=== PATIENT | male | born 1955 | race Caucasian/White ===

== ENCOUNTER 2019-12-25 11:40 | Inpatient (IN) ==
[2019-12-25] MEDS ORDERED: ROCEPHIN 1 GM in NS 50 ML IV ONE (12:44)
[2019-12-25] MEDS ORDERED: NS 1,000 ML IV ONE ×2 (12:44→20:41)
[2019-12-25] MEDS ORDERED: SOLU-MEDROL IV ONE (12:44)
--- NOTE | 2019-12-25 12:49 | EKG Report ---
Test Performed on : 12/25/2019 12:25:11 PM Test Reason : AMS,CP Blood Pressure : / mmHG Vent. Rate : 114 BPM Atrial Rate : 114 BPM P-R Int : 126 ms QRS Dur : 086 ms QT Int : 310 ms P-R-T Axes : 048 056 058 degrees QTc Int : 427 ms Sinus tachycardia. Otherwise normal ECG No previous ECGs available Unconfirmed Result
--- NOTE | 2019-12-25 13:05 | Diag Imaging Result Doc PS360 ---
CHEST-PORTABLE - 12/25/2019 INDICATION: CP COMPARISON: None FINDINGS: There is a focal, mixed infiltrate in the right lung base. Lung volumes are moderately low. Heart size is normal. No pneumothorax or pleural effusion. IMPRESSION: Indeterminate infiltrate in the right lung base. Electronically signed by Simeon Guevara 12/25/2019 1:02 PM
--- NOTE | 2019-12-25 13:22 | Diag Imaging Result Doc PS360 ---
EXAM: CT HEAD W/O CONTRAST HISTORY: AMS,CONFUSION TECHNIQUE: CT head without contrast COMPARISON: None. FINDINGS: No parenchymal hemorrhage. No epidural or subdural hematoma. No subarachnoid hemorrhage. No mass identified on this noncontrasted exam. No hydrocephalus. No sinus opacification. IMPRESSION: No hemorrhage. Negative brain CT without contrast. This exam was performed using automated exposure control, adjustment of mA or kV according to patient size, and/or use of iterative reconstruction technique. Electronically signed by Norman Jc 12/25/2019 1:19 PM
[2019-12-25 13:39] LABS: INR 1.15; PROTIME 14.9 Seconds (11.0-16.0); PTT 33.5 Seconds (22.3-41.8)
[2019-12-25 13:46] LABS: ALLEN TEST YES; BLOOD TYPE ARTERIAL; HCO3-(ACT) 23.1 mmoll (20.0-26.0); METHB 0.8 % (0.0-1.5); O2(CT) 17.9 mL/dL (15.0-23.0); PCO2(98.6) 30 mmHg (35-45); PO2(98.6) 50 mmHg (60-100); SAMPLE BLOOD; SAO2 90.4 % (95.0-100.0); THB 14.6 g/dL (11.5-17.4); pH(98.6) 7.45 (7.35-7.45)
[2019-12-25 13:51] LABS: MODALITY CANNULA
[2019-12-25 13:52] LABS: O2HB 87.5 % (95.0-99.0)
[2019-12-25 13:56] LABS: BASO# 0.02 X1000 (0.0-0.2); BASO% 0.1 % (0.0-0.8); EOS# 0.01 X1000 (0.0-0.7); EOS% 0.1 % (0.0-10.0); HEMATOCRIT 41.9 % (42.0-52.0); HEMOGLOBIN 14.2 g/dL (14.0-18.0); IMM GRAN# 0.28 X1000 (0.0-0.04); IMM GRAN% 1.5 % (0.0-0.5); LYMPH# 1.08 X1000 (1.2-3.4); LYMPH% 5.7 % (20.5-51.1); MCH 28.9 PG (27-31); MCHC 33.9 g/dL (33-37); MCV 85.2 FL (81-99); MONO# 1.17 X1000 (0.11-0.59); MONO% 6.1 % (1.7-9.3); MPV 10.6 FL (7.4-10.4); NEUT# 16.49 X1000 (1.4-6.5); NEUT% 86.5 % (42.2-75.2); PLT 218 X1000 (130-400); RBC 4.92 XMIL (4.7-6.1); RDW 14.3 % (11.5-14.5); WBC 19.05 X1000 (4.8-10.8)
[2019-12-25 14:16] LABS: AGAP 16; BUN 12 mg/dL (8-22); CHLORIDE 93 mmol/L (98-107); COSMO 258; GLUCOSE 111 mg/dL (70-104); POTASSIUM 5.1 mmol/L (3.5-5.1); SODIUM 128 mmol/L (136-145); TCO2 19 mmol/L (25-35)
[2019-12-25 14:17] LABS: ALB/GLOB RATIO 0.6; ALBUMIN 2.8 g/dL (3.5-5.0); ALKALINE PHOSPHATASE 88 U/L (32-122); CALCIUM 8.7 mg/dL (8.8-10.2); CREATININE 0.9 mg/dL (0.7-1.2); ESTIMATED GFR > 60; GOT 36 U/L (10-34); GPT 16 U/L (10-44); MAGNESIUM 2.2 mg/dL (1.5-2.7); TOTAL BILIRUBIN 1.14 mg/dL (0.20-1.00); TOTAL PROTEIN 7.5 g/dL (6.3-8.3)
[2019-12-25] MEDS ORDERED: NICODERM PATCH TD ONE (17:35)
[2019-12-25] MEDS ORDERED: TORADOL IV ONE (17:35)
[2019-12-25] MEDS ORDERED: ZOFRAN IV ONE (17:35)
[2019-12-25 18:34] LABS: URINE SOURCE CLEAN CATCH
[2019-12-25 18:41] LABS: BILIRUBIN URINE NEGATIVE (NEGATIVE); BLOOD URINE NEGATIVE (NEGATIVE); COLOR YELLOW; GLUCOSE URINE NEGATIVE (NEGATIVE); KETONE URINE TRACE mg/dL (NEGATIVE); LEUKOCYTES URINE NEGATIVE (NEGATIVE); NITRITE URINE NEGATIVE (NEGATIVE); PROTEIN URINE 50 mg/dL (NEGATIVE); TURBIDITY URINE CLEAR (CLEAR); UROBILINOGEN URINE 8 mg/dL (NORMAL)
[2019-12-25 18:47] LABS: UR AMPHETAMINES QUAL NONE DETECTED (NONE DETECT); UR BARBITUATES QUAL NONE DETECTED (NONE DETECT); UR BENZODIAZEPIN QUAL NONE DETECTED (NONE DETECT); UR CANNABINOIDS QUAL NONE DETECTED (NONE DETECT); UR COCAINE QUAL NONE DETECTED (NONE DETECT); UR METHADONE QUAL NONE DETECTED (NONE DETECT); UR OPIATES QUAL NONE DETECTED (NONE DETECT); UR OXYCODONE QUAL NONE DETECTED (NONE DETECT); UR PCP QUAL NONE DETECTED (NONE DETECT)
[2019-12-25 18:51] LABS: UR EPITHELIAL CELLS <10 /HPF (<10); URINE BACTERIA NEGATIVE /HPF; URINE RBC <10 /HPF (<10); URINE WBC <10 /HPF (<10)
[2019-12-25 19:27] LABS: URINE CASTS NONE SEEN; URINE CRYSTALS NONE SEEN; URINE SMALL ROUND CELLS NONE SEEN; URINE YEAST NONE SEEN
[2019-12-25] MEDS ORDERED: VENTOLIN HFA INH PRN (20:01)
[2019-12-25 20:27] LABS: ALLEN TEST YES; BE -2.7 mmoll (-3.0-3.0); BLOOD TYPE ARTERIAL; HCO3-(ACT) 22.7 mmoll (20.0-26.0); O2HB 93.2 % (95.0-99.0); PCO2(98.6) 31 mmHg (35-45); PO2(98.6) 69 mmHg (60-100); SAMPLE BLOOD; SAO2 95.7 % (95.0-100.0); THB 13.7 g/dL (11.5-17.4); pH(98.6) 7.43 (7.35-7.45)
[2019-12-25 20:29] LABS: MODALITY CANNULA
[2019-12-25] MEDS: PRINIVIL PO SCH (21:41)
--- NOTE | 2019-12-25 21:49 | Diag Imaging Result Doc PS360 ---
EXAM: CT ABD/PELVIS/PULM ARTERIES INDICATION: Elevated d dimer/abd pain/AMS TECHNIQUE: This exam was performed using automated exposure control, adjustment of mA or kV according to patient size, and/or use of iterative reconstruction technique. Thin section axial images and 3-D MIPS through the chest were obtained. Standard axial images and coronal reformations through the abdomen and pelvis were obtained. COMPARISON: None. FINDINGS: CTA CHEST: There is no evidence of pulmonary embolism. There is minimal aortic atherosclerotic calcification. There is no evidence of aortic aneurysm or dissection. There is mild right hilar and mediastinal lymphadenopathy that is assumed to be reactive. There is pulmonary emphysema with an apical predominance. There is a dense right lower lobe airspace infiltrate consistent with pneumonia. The left lung is clear. There is probably trace pleural fluid on the right. There is no pneumothorax. CT ABDOMEN/PELVIS: There has been a prior cholecystectomy. There is mild compensatory biliary dilatation. The liver, spleen, pancreas, and adrenal glands are unremarkable. There is a small left renal cyst. The kidneys are essentially unremarkable, otherwise. The urinary bladder appears normal. There are bilateral small inguinal hernias containing only fat. There is mild to moderate uncomplicated diverticulosis coli. There is no evidence of appendicitis. The remainder of the GI tract is grossly unremarkable. No focal inflammatory changes, free abdominal gas, or free fluid is appreciated. There is patchy aortoiliac atherosclerotic calcification. An SMA stent is in place. There is multilevel lumbar degenerative disc disease. There is chronic spondylolysis at L5 with grade 2 anterolisthesis of L5 on S1. IMPRESSION: 1.Severe right lower lobe pneumonia. 2.No evidence of pulmonary embolism. 3.Pulmonary emphysema. 4.No evidence of acute abdominal or pelvic pathology. 5.Other incidental/nonacute findings detailed above. Electronically signed by Mikhail Wick 12/25/2019 9:47 PM
--- NOTE | 2019-12-25 22:28 | HISTORY AND PHYSICAL ---
CHIEF COMPLAINT: Altered mental status. HISTORY OF PRESENT ILLNESS: Mr. Bellamy is a 64-year-old male that I do not have really any medical history on. There is no ER provider dictation and he was not really called to our group with a report on admission. Despite this, the patient does need to be admitted. We were told from the ER provider that this patient was signed out to her, she did not have much information, it appears that he had a pneumonia and needed to be admitted. At any rate, the patient is altered. He is unsure what day he came to the emergency room. He is oriented only to person. He is unsure why he is in the emergency room. He does admit to being a four beer per day drinker, which is the large beers, I believe 16 ozs to 32 ozs, so he could be anywhere between a 6 to 12 beer a day drinker. He was noted to be hypoxic on his ABG. He arrived in the emergency room at around noon today. First set of labs showed hypoxia with an O2 of 50%. D dimer was elevated at 3.74. White count was 19.05. His alcohol and toxicology screen is negative. Flu screen is negative. CT of his head is negative. Chest x-ray showed indeterminate infiltrate in the right lung base with low lung volumes. A CT angio of the pulmonary arteries will be obtained at this time to rule out pulmonary embolus. He also appeared to have reflex from palpation of the abdomen, so a CT of the abdomen and pelvis will be obtained. At this time he will be admitted and treated for possible pneumonia. Blood cultures are pending. PAST MEDICAL HISTORY: I believe COPD. He is a one pack per day smoker. Possible cardiac stenting. Hypertension, hyperlipidemia, and GERD. PAST SURGICAL HISTORY: He has had stenting and I believe a cholecystectomy. SOCIAL HISTORY: He smokes a pack a day. He drinks between 6 and 12 beers a day (12 oz beers). No illicit drugs. FAMILY HISTORY: This was not able to be obtained related to patient's mentation. ALLERGIES: No known drug allergies. HOME MEDICATIONS: Albuterol two puffs q six hours, Symbicort 80/4.5 two puffs b.i.d., Plavix 75 p.o. daily, Lexapro 20 mg p.o. daily, Neurontin 600 mg p.o. b.i.d., lisinopril 20 mg p.o. b.i.d., lovastatin 20 mg p.o. with dinner, Protonix 40 mg p.o. daily. REVIEW OF SYSTEMS: A 14-point review of systems was attempted with the patient and had no complaint. Pertinent positives as mentioned are listed above in HPI. PHYSICAL EXAMINATION: VITAL SIGNS: Temperature 100.1, pulse 82, respirations 18, blood pressure 112/67, oxygen saturation 93% on 2 L via nasal cannula. GENERAL: A confused 64-year-old male. Oriented only to person. Lying on the ER stretcher in no acute distress. HEENT: Head is atraumatic and normocephalic. Pupils are equal, round and reactive to light. Extraocular eye movements intact. Sclerae anicteric. Conjunctivae pink. Oral mucosa is dry. NECK: Supple. No JVD. No thyromegaly. Trachea is midline. No cervical lymphadenopathy. CARDIAC: S1 and S2 appreciated. No murmurs, gallops or rubs. LUNGS: Expiratory wheezing noted. Decreased bilaterally. No rhonchi or rales. Symmetric rise and fall with respirations. ABDOMEN: Soft, nondistended. Tender diffusely with palpation. Bowel sounds present in all four quadrants and normoactive. No pulsatile mass or organomegaly. EXTREMITIES: No cyanosis, clubbing or edema. There are 2+ pedal pulses bilaterally. GENITOURINARY: No bladder distention. The patient voids, otherwise deferred. NEUROLOGICAL: Oriented only to person. Cranial nerves II-XII appear to be grossly intact. DIAGNOSTIC DATA: CT of the head - negative brain CT without contrast. Chest x-ray with indeterminate infiltrate in the right lung base. Laboratory data showed WBC of 19.05, hemoglobin 14.5, hematocrit 41.9, platelet count 218,000. D dimer is 3.74. ABG with pH of 7.45, pCO2 30, pO2 50, bicarb 23. Sodium 128, potassium 5.1, chloride 93, carbon dioxide 19, BUN 12, creatinine 0.9, glucose 111. Urine unremarkable. Alcohol and toxicology screen is negative. ASSESSMENT AND PLAN: 1. Questionable right lower lobe pneumonia. 2. Hyponatremia, likely related to beer potomania. 3. Alcohol abuse. 4. Questionable alcohol withdrawal. 5. Hypoxic respiratory failure. 6. Metabolic encephalopathy. PLAN: Admit the patient to [facility]. CT of his pulmonary arteries, abdomen, and pelvis is pending to rule out DVT. He does have an elevated D dimer. Will treat what appears to be a probable pneumonia with Rocephin and Zithromax. He received one dose of Solu-Medrol in the emergency room. He does have a history of COPD. Continue home bronchodilators. Titrate oxygen per protocol. Continue home medications for lipids and hypertension. Recheck laboratory data tomorrow morning. Further recommendations based on clinical course. Dictated by TRAMAINE Rosen for Gerald Long MD cc: TRAMAINE Rosen MD CTA ordered in light of hypoxia and d-dimer which only showed severe RLL PNA. Continue with above antibiotics. Independent exam done by me. Pt will also be on Ativan PRN. for potential ETOH withdrawal issues. Exam showed middle aged WM who is Alert but O x 2 and intermittently confused. BB creps in lungs and no tremors. MTDD
[2019-12-25] MEDS ORDERED: ZOFRAN IV PRN (23:13)
[2019-12-25] MEDS: NEURONTIN PO SCH (23:37)
[2019-12-26] LABS: BASO# 0.01 X1000 (0.0-0.2); BASO% 0.1 % (0.0-0.8); HEMATOCRIT 39.3 % (42.0-52.0); HEMOGLOBIN 13.2 g/dL (14.0-18.0); IMM GRAN# 0.17 X1000 (0.0-0.04); IMM GRAN% 1.2 % (0.0-0.5); LYMPH% 5.8 % (20.5-51.1); MCH 28.6 PG (27-31); MCHC 33.6 g/dL (33-37); MCV 85.1 FL (81-99); MONO# 0.68 X1000 (0.11-0.59); MONO% 4.9 % (1.7-9.3); MPV 10.1 FL (7.4-10.4); NEUT# 12.13 X1000 (1.4-6.5); PLT 184 X1000 (130-400); RBC 4.62 XMIL (4.7-6.1); RDW 14.3 % (11.5-14.5); WBC 13.79 X1000 (4.8-10.8)
[2019-12-26] MEDS: ZITHROMAX 500 MG/NS 500 MG/250 ML IVPB IV SCH (00:02)
[2019-12-26 00:19] LABS: AGAP 13; BUN 16 mg/dL (8-22); CALCIUM 8.4 mg/dL (8.8-10.2); CHLORIDE 97 mmol/L (98-107); COSMO 265; CREATININE 0.8 mg/dL (0.7-1.2); ESTIMATED GFR > 60; GLUCOSE 161 mg/dL (70-104); POTASSIUM 4.6 mmol/L (3.5-5.1); SODIUM 130 mmol/L (136-145); TCO2 20 mmol/L (25-35)
[2019-12-26] MEDS ORDERED: ATIVAN IV PRN (00:43)
[2019-12-26] MEDS: PROTONIX PO SCH (06:00)
[2019-12-26] MEDS: ZYVOX PO SCH ×2 (09:13→20:43)
[2019-12-26] MEDS: LEXAPRO PO SCH (09:13)
[2019-12-26] MEDS: PLAVIX PO SCH (09:14)
[2019-12-26] MEDS: NICODERM PATCH TD SCH (09:14)
[2019-12-26] MEDS: NEURONTIN PO SCH ×2 (09:19→20:43)
[2019-12-26] MEDS: PRINIVIL PO SCH ×2 (09:24→20:44)
[2019-12-26] MEDS ORDERED: TORADOL PO PRN (09:26)
--- NOTE | 2019-12-26 11:28 | PROGRESS NOTE ---
DATE: 12/26/2019 SUBJECTIVE: This patient is feeling better compared with yesterday. He has been admitted due to right lower lobe pneumonia. CT scan showed severe right lower lobe pneumonia. No evidence of pulmonary embolism. It also showed pulmonary emphysema. This patient has a history of COPD. We had a large conversation about tobacco use and abuse. I will continue with the same management for now. I will add a banana bag to his medications since he drinks mostly every day around 4 beers or so. As per the patient, the last time he got a drink was 1 or 2 weeks ago. OBJECTIVE: Vital Signs: Temperature 97.4 degrees, pulse 66, respiratory rate 18, blood pressure 96/57, oxygen saturation 94% on 2 L of nasal cannula. HEENT: Head normocephalic. No trauma. PERRLA. Neck: Supple. No JVD. No masses. Central trachea. Chest: Decreased breath sounds globally with prolonged expiratory phase. Rhonchi at the right base. Abdomen: Soft, protuberant, nontender, nondistended. No hepatosplenomegaly. Extremities: No edema, no clubbing, no cyanosis. Neurological Examination: The patient is awake and alert. He is oriented x3. No focal deficits. Laboratory: WBC 13.7, hemoglobin 13.2, hematocrit 39.3, platelets 184,000. Sodium 130, potassium 4.6, chloride 97, bicarbonate 20, BUN 16, creatinine 0.8, glucose 161, calcium 8.4, albumin 2.8. ASSESSMENT AND PLAN: 1. Right lower lobe pneumonia. Continue with antibiotics. Continue with the same treatment. He is feeling better. Continue with oxygen supplementation as well. 2. Hypoxemic respiratory failure. Continue with oxygen supplementation. 3. Hyponatremia, likely related to beer potomania. Continue with the same management. 4. Alcohol abuse. This patient has been highly advised against alcohol use. I will continue with daily cessation education. We will keep an eye for any signs or symptoms of withdrawal. 5. Metabolic encephalopathy, resolved. cc: Stevie Morel MD
[2019-12-26] MEDS: M.V.I.-12 10 ML, FOLIC ACID 1 MG, MAGNESIUM SULFATE 1 GM, THIAMINE 100 MG in NS 1,000 ML IV SCH (11:33)
[2019-12-26] MEDS: NS 1,000 ML IV SCH ×2 (11:41→17:40)
[2019-12-26] MEDS: ROCEPHIN 1 GM in NS 50 ML IV SCH (13:23)
[2019-12-26] MEDS: SYMBICORT 80/4.5 MICROGM INHALER INH SCH ×2 (15:48→19:41)
[2019-12-26] MEDS: MEVACOR PO SCH (17:18)
[2019-12-26] MEDS ORDERED: ALBUMIN 25% IV ONE (17:30)
[2019-12-26] MEDS: TYLENOL PO PRN (18:47)
[2019-12-27] MEDS: NS 1,000 ML IV SCH ×2 (03:10→13:08)
[2019-12-27] MEDS: PROTONIX PO SCH (06:18)
--- NOTE | 2019-12-27 07:01 | Diag Imaging Result Doc PS360 ---
EXAM: CHEST-PORTABLE 12/27/2019 HISTORY: dyspnea TECHNIQUE: AP portable at 0616 COMMENT: There is alveolar opacity in the right lower lobe. This has improved slightly since 12/25/2019. The left lung is apparently clear. IMPRESSION: Improved right lower lobe pneumonia. Electronically signed by Tino Reyes 12/27/2019 6:59 AM
[2019-12-27 07:41] LABS: BASO# 0.01 X1000 (0.0-0.2); BASO% 0.1 % (0.0-0.8); HEMATOCRIT 35.3 % (42.0-52.0); IMM GRAN# 0.07 X1000 (0.0-0.04); IMM GRAN% 0.5 % (0.0-0.5); LYMPH# 1.51 X1000 (1.2-3.4); LYMPH% 10.4 % (20.5-51.1); MCH 28.6 PG (27-31); MONO# 0.58 X1000 (0.11-0.59); MPV 10.5 FL (7.4-10.4); NEUT# 12.36 X1000 (1.4-6.5); PLT 221 X1000 (130-400); RDW 14.1 % (11.5-14.5); WBC 14.53 X1000 (4.8-10.8)
[2019-12-27 08:06] LABS: AGAP 11; ALB/GLOB RATIO 0.8; ALBUMIN 2.6 g/dL (3.5-5.0); ALKALINE PHOSPHATASE 57 U/L (32-122); BUN 26 mg/dL (8-22); CALCIUM 7.9 mg/dL (8.8-10.2); CHLORIDE 103 mmol/L (98-107); COSMO 276; CREATININE 0.8 mg/dL (0.7-1.2); ESTIMATED GFR > 60; GLUCOSE 116 mg/dL (70-104); GOT 30 U/L (10-34); GPT 14 U/L (10-44); MAGNESIUM 2.6 mg/dL (1.5-2.7); PHOSPHORUS 4.3 mg/dL (2.7-4.5); POTASSIUM 4.2 mmol/L (3.5-5.1); SODIUM 135 mmol/L (136-145); TCO2 21 mmol/L (25-35); TOTAL BILIRUBIN 0.48 mg/dL (0.20-1.00); TOTAL PROTEIN 5.8 g/dL (6.3-8.3)
[2019-12-27] MEDS: SYMBICORT 80/4.5 MICROGM INHALER INH SCH ×2 (08:25→19:46)
[2019-12-27] MEDS: NICODERM PATCH TD SCH (10:09)
[2019-12-27] MEDS: ZYVOX PO SCH ×2 (10:09→20:50)
[2019-12-27] MEDS: PRINIVIL PO SCH (10:09)
[2019-12-27] MEDS: M.V.I.-12 10 ML, FOLIC ACID 1 MG, MAGNESIUM SULFATE 1 GM, THIAMINE 100 MG in NS 1,000 ML IV SCH (10:09)
[2019-12-27] MEDS: PLAVIX PO SCH (10:09)
[2019-12-27] MEDS: LEXAPRO PO SCH (10:09)
[2019-12-27] MEDS: NEURONTIN PO SCH ×2 (10:59→20:50)
[2019-12-27] MEDS: ROCEPHIN 1 GM in NS 50 ML IV SCH (13:08)
--- NOTE | 2019-12-27 14:08 | PROGRESS NOTE ---
DATE: 12/27/2019 SUBJECTIVE: The patient is feeling better compared with yesterday. CT scan shows severe right lower lobe pneumonia. No evidence of pulmonary embolism. White blood cell count decreased from 19 to 14. Blood pressure seems to be much better. We will continue with antibiotics. We will continue with the same management for now. Hopefully this patient will be discharged in the next 24 to 48 hours. OBJECTIVE: Vital Signs: Temperature 97.4 degrees, pulse 69, respiratory rate 16, blood pressure 103/55, oxygen saturation 94% on 2 L of nasal cannula. HEENT: Head normocephalic, atraumatic. PERRLA. Neck: Supple. No JVD. No masses. Central trachea. Chest: Decreased breath sounds globally with prolonged expiratory phase. Rhonchi at the right base. Abdomen: Soft, nontender, nondistended. No hepatosplenomegaly. Extremities: No edema, no clubbing, no cyanosis. Neurological: The patient is awake and alert. He is oriented x3. No focal deficits. No signs of withdrawal. DIAGNOSTIC DATA: WBC 14.5, hemoglobin 12, hematocrit 35.3, platelets 221,000. Sodium 135, potassium 4.2, chloride 103, bicarbonate 21, BUN 26, creatinine 0.8, glucose 116. Calcium 7.9. Albumin 2.6. ASSESSMENT AND PLAN: 1. Right lower lobe pneumonia, continue with antibiotics. Continue with same treatment. He is feeling better. Continue with oxygen supplementation as well. 2. Hypoxemic respiratory failure. Continue with oxygen supplementation. 3. Hyponatremia, much better. Continue with same management. Could be related to beer potomania. We will monitor. 4. Alcohol abuse. This patient has been highly advised against alcohol use. I will continue with daily cessation education. 5. Metabolic encephalopathy, resolved. 6. Blood pressure. I am holding the lisinopril for now due to his low blood pressure that was happening since yesterday. 7. Dyslipidemia. Continue with statins. cc: Stevie Morel MD
[2019-12-27] MEDS: MEVACOR PO SCH (16:52)
[2019-12-27] MEDS: ZITHROMAX 500 MG/NS 500 MG/250 ML IVPB IV SCH ×2 (23:13)
[2019-12-28] MEDS: NS 1,000 ML IV SCH (03:27)
[2019-12-28] MEDS: PROTONIX PO SCH (06:00)
[2019-12-28] MEDS: SYMBICORT 80/4.5 MICROGM INHALER INH SCH ×2 (07:30→19:49)
[2019-12-28 08:37] LABS: HEMATOCRIT 37.9 % (42.0-52.0); HEMOGLOBIN 12.7 g/dL (14.0-18.0); MCH 28.8 PG (27-31); MCHC 33.5 g/dL (33-37); MCV 85.9 FL (81-99); MPV 10.3 FL (7.4-10.4); PLT 254 X1000 (130-400); RBC 4.41 XMIL (4.7-6.1); RDW 14.8 % (11.5-14.5); WBC 8.15 X1000 (4.8-10.8)
[2019-12-28 08:38] LABS: BASO# 0.01 X1000 (0.0-0.2); BASO% 0.1 % (0.0-0.8); EOS# 0.06 X1000 (0.0-0.7); EOS% 0.7 % (0.0-10.0); IMM GRAN# 0.06 X1000 (0.0-0.04); IMM GRAN% 0.7 % (0.0-0.5); LYMPH# 2.37 X1000 (1.2-3.4); LYMPH% 29.1 % (20.5-51.1); MONO# 0.54 X1000 (0.11-0.59); MONO% 6.6 % (1.7-9.3); NEUT# 5.11 X1000 (1.4-6.5); NEUT% 62.8 % (42.2-75.2)
[2019-12-28 08:49] LABS: AGAP 9; BUN 21 mg/dL (8-22); CHLORIDE 109 mmol/L (98-107); COSMO 280; CREATININE 0.7 mg/dL (0.7-1.2); ESTIMATED GFR > 60; GLUCOSE 83 mg/dL (70-104); POTASSIUM 4.4 mmol/L (3.5-5.1); SODIUM 139 mmol/L (136-145); TCO2 21 mmol/L (25-35)
[2019-12-28] MEDS: M.V.I.-12 10 ML, FOLIC ACID 1 MG, MAGNESIUM SULFATE 1 GM, THIAMINE 100 MG in NS 1,000 ML IV SCH (09:07)
[2019-12-28] MEDS: NICODERM PATCH TD SCH (09:08)
[2019-12-28] MEDS: ZYVOX PO SCH (09:08)
[2019-12-28] MEDS: PLAVIX PO SCH (09:08)
[2019-12-28] MEDS: LEXAPRO PO SCH (09:08)
[2019-12-28] MEDS: NEURONTIN PO SCH ×2 (09:08→20:35)
[2019-12-28] MEDS: ROCEPHIN 2 GM in NS 50 ML IV SCH (12:29)
--- NOTE | 2019-12-28 14:29 | INFECTIOUS DISEASE CONSULT REP ---
DATE: 12/28/2019 CONCLUSION: The patient has a pneumococcal pneumonia with an associated pneumococcal bacteremia. The patient may have an immunoglobulin deficiency. RECOMMENDATIONS: I agree with treating the patient with Rocephin. I have increased the dose to 2 grams IV every 24 hours. I have ordered an immunoglobulin level. Our plan with this patient is that if the patient's repeat blood cultures are sterile, then the patient will be sent home on Rocephin 2 grams IV daily for 14 days, with day 1 being the first day that the patient's repeat blood cultures are sterile. I have ordered immunoglobulin levels, and if the IgG is low, then in 6 to 8 weeks, I will repeat it, and if it is still low, then I think he would be a candidate for monthly IVIG in view of the fact that he has had pneumonia frequently, according to the patient. If the patient's repeat blood cultures are sterile, will have a PICC placed so the patient can go home on IV antibiotics. If he cannot afford the antibiotics at home, then he will get his Rocephin at the outpatient clinic on a daily basis for 14 days, with day 1 being the first day that the repeat blood cultures are sterile. Also, a PICC will be installed if the repeat blood cultures are negative. DISCUSSION: The patient has had fever and cough for approximately 5 days. He denied producing sputum. His chest x-ray shows right lower lobe pneumonia. The patient's CBC shows a white count of 8150, hemoglobin 12.7, and platelet count 254,000. Creatinine is 0.7. GFR is greater than 60. Blood cultures grew Streptococcus pneumoniae. Repeat blood cultures are pending. Swab for influenza was negative. The patient's chest x-ray shows improvement in the right lower lobe pneumonia. PAST MEDICAL HISTORY/REVIEW OF SYSTEMS: Eyes and Ears: His vision is good. He does have tendinitis. Neck: No stiffness. Respiratory: See present illness. Cardiac: No chest pain or palpitations. GI: No nausea, vomiting, or diarrhea. : No dysuria or flank pain. Bones/Joints/Muscles: No joint swelling or muscle aches. Neurologic: No seizures. No loss of motor or sensory function. The patient does have decreased hearing. PREVIOUS HOSPITALIZATIONS AND OPERATIONS: The patient has had a cholecystectomy. He has had removal of pancreatic stones. He has had placement of aortic stents. MEDICAL DISEASES: Positive for hypertension, peripheral vascular disease, COPD, hyperlipidemia, gastroesophageal reflux disease, and cigarette smoking. INFECTIOUS DISEASE HISTORY: Positive for pneumonia and UTI. FAMILY HISTORY: Positive for hypertension and cancer. SOCIAL HISTORY: [place] He is . He lives with his daughter. He is disabled. He smokes cigarettes and drinks alcoholic beverages. He does not abuse drugs. ALLERGIES: The chart lists no known drug allergies. HOME MEDICATIONS: Include albuterol, Symbicort, Plavix, Lexapro, Neurontin, lisinopril, lovastatin, and Protonix. PHYSICAL EXAMINATION: Vital Signs: Temperature is 97.9 degrees, pulse 70, respirations 18, blood pressure is 126/72. The patient is 5 feet 8 inches tall, weighs 169 pounds. General: This is a somewhat ill-appearing, middle-aged male. He is in no acute distress. HEENT: His vision appears to be good, but his hearing is poor. Neck: No meningismus. Thorax: The patient has an increased AP diameter of the chest. Lungs: Clear to auscultation. Cardiovascular: Heart rate is regular. Abdomen: Soft and nontender. Neurologic: The patient is alert. He can move his extremities. There is no tremor. He has decrease in his hearing. His memory as regarding his medical history seemed to be intact. Thank you for the consult. cc: Jordan Martinez MD
[2019-12-28] MEDS: MEVACOR PO SCH (17:09)
--- NOTE | 2019-12-28 17:36 | PROGRESS NOTE ---
DATE: 12/28/2019 SUBJECTIVE: The patient is getting better compared with yesterday, but he has a positive culture that showed a streptococcal pneumonia. This patient has been evaluated by Dr. Martinez from the Infectious Disease Department, who has continued this patient on ceftriaxone 2 g daily. The plan is to put in a PICC line if the blood culture is negative and let him go home with IV antibiotics. OBJECTIVE: Vital Signs: Temperature 97.9, pulse 70, respiratory rate 18, blood pressure 126/72, oxygen saturation 91% on nasal cannula. HEENT: Head normocephalic, no trauma. PERRLA. Neck: Supple. No JVD. No masses. Central trachea. Chest: Decreased breath sounds mostly at the bases with prolonged expiratory phase. Rhonchi at the right base. Abdomen: Soft, nontender, nondistended. No hepatosplenomegaly. Extremities: No edema, no clubbing, no cyanosis. Neurological: The patient is awake, alert. He is oriented x3. No focal deficits. No signs of withdrawal. LABORATORY: WBCs 8.1, hemoglobin 12.7, hematocrit 37.9, platelets 254. Sodium 139, potassium 4.4, chloride 109, bicarbonate 21, BUN 21, creatinine 0.7 glucose 83, calcium 8. ASSESSMENT AND PLAN: 1. Right lower lobe pneumonia. Continue with antibiotics. Continue with same treatment. He is feeling better. Continue with oxygen supplementation. 2. Streptococcus pneumoniae bacteremia. We have increased the dose of ceftriaxone from 1 g to 2 g. Infectious Disease Department on board. The plan is to put a PICC line in this patient once the blood culture is negative. 3. Hyponatremia, resolved. 4. Alcohol abuse. This patient has been highly advised against alcohol use. I will continue with daily cessation education. 5. Tobacco abuse. This patient has been highly advised against alcohol use. He has been educated. 6. Metabolic encephalopathy, resolved. 7. Hypotension, resolved. Continue with the same management. 8. Dyslipidemia. Continue with statins. cc: Stevie Morel MD
[2019-12-29] MEDS: NS 1,000 ML IV SCH ×2 (04:51→17:08)
[2019-12-29] MEDS: PROTONIX PO SCH (06:57)
[2019-12-29] MEDS: SYMBICORT 80/4.5 MICROGM INHALER INH SCH ×2 (08:30→20:00)
[2019-12-29] MEDS: M.V.I.-12 10 ML, FOLIC ACID 1 MG, MAGNESIUM SULFATE 1 GM, THIAMINE 100 MG in NS 1,000 ML IV SCH (08:55)
[2019-12-29] MEDS: LEXAPRO PO SCH (08:59)
[2019-12-29] MEDS: NICODERM PATCH TD SCH (08:59)
[2019-12-29] MEDS: PLAVIX PO SCH (08:59)
[2019-12-29] MEDS: NEURONTIN PO SCH ×2 (08:59→19:59)
[2019-12-29] MEDS: TYLENOL PO PRN ×2 (10:17→19:58)
[2019-12-29 10:43] LABS: INR 1.09; PROTIME 14.3 Seconds (11.0-16.0)
[2019-12-29] MEDS ORDERED: NS 250 ML ONE (10:53)
[2019-12-29] MEDS: ROCEPHIN 2 GM in NS 50 ML IV SCH (12:25)
--- NOTE | 2019-12-29 14:09 | PROGRESS NOTE ---
DATE: 12/29/2019 SUBJECTIVE: No big changes compared with yesterday. This patient is feeling better. He is getting a PICC line today. OBJECTIVE: Vital Signs: Temperature 97.4 degrees, pulse 67, respiratory rate 16, blood pressure 143/86, oxygen saturation 98 on room air. HEENT: Head normocephalic. No trauma. PERRLA. Neck: Supple. No JVD. No masses. Central trachea. Chest: Decreased breath sounds at the bases with prolonged expiratory phase. Rhonchi at the right base. Abdomen: Soft, nontender, nondistended. No hepatosplenomegaly. Extremities: No edema, no clubbing, no cyanosis. Neurological: The patient is awake and alert. He is oriented x3. No focal deficits. No signs of withdrawal symptoms. LABORATORY: No lab work done today. ASSESSMENT AND PLAN: 1. Right lower lobe pneumonia. Continue with antibiotics. Continue with same treatment. He is feeling better. Continue with oxygen supplementation as needed. 2. Streptococcus pneumonia bacteremia. He is on ceftriaxone. Infectious Disease on board. He is getting a PICC line. Hopefully tomorrow, he will be discharged home if the blood culture is negative. 3. Hyponatremia, resolved. 4. Alcohol abuse. This patient has been highly advised against alcohol use. I will continue with daily cessation education. We will keep an eye on withdrawal symptoms. 5. Tobacco abuse. This patient has been highly advised against tobacco use and he has been educated as well. 6. Metabolic encephalopathy, resolved. 7. Hypotension, resolved. 8. Dyslipidemia. Continue with statins. cc: Stevie Morel MD
--- NOTE | 2019-12-29 15:54 | INFECTIOUS DISEASE PROGRESS NO ---
DATE: 12/29/2019 PRESENT ILLNESS: Mr. Bellamy has pneumococcal pneumonia with an associated bacteremia. MEDICATIONS: He is being treated with Rocephin 2 g IV every 24 hours. PHYSICAL EXAMINATION: Vital Signs: Temperature is 97.8 degrees, pulse rate 69, respiratory rate 18, blood pressure 157/76, O2 saturation is 99% on 2 L nasal cannula. General: This is a chronically ill-appearing, middle-aged gentleman. He is sitting up in the bed, currently in no acute distress. HEENT: Atraumatic, normocephalic. Oral mucous membranes are pink and moist. Conjunctivae are pink. Dentition is poor. Neck: Supple. Trachea is midline. Cardiovascular: Heart rate is regular. S1-S2 noted Respiratory: Lung sounds are clear to auscultation on the left side and right upper lobe, with rales noted to the right mid and lower lobes. No work of breathing is noted. Abdomen: Soft, round, and nontender. Bowel sounds are active. Neurologic: He is awake, alert, oriented, and able to ambulate independently. LABORATORY AND X-RAY: No blood work today. However, his white blood cell count was normal yesterday. His original blood cultures grew a Streptococcus pneumoniae and a set of blood cultures are pending that were drawn yesterday. No imaging reports today. ASSESSMENT AND PLAN: Mr. Bellamy is being treated for a pneumococcal pneumoniae and bacteremia. We are awaiting a set of sterile blood cultures which should hopefully be available tomorrow. The first day of sterile blood cultures will be his first day of treatment which will be required for 14 days. I explained to him the procedures and protocol for PICC line placement and care. The plan will be to have him finish the 2 weeks of Rocephin, after which time, we will see him back in the office and repeat a chest x-ray. Hopefully at that time, we will be able to discontinue his PICC line. I have talked to him about smoking cessation and he states he will try. We are awaiting a check of his immunoglobulins which have been drawn. These plans have been discussed with and recommended by Dr. Martinez. COMORBIDITIES: For Mr. Bellamy include cigarette smoking with chronic obstructive pulmonary disease and gastroesophageal reflux disease. Dictated by TRAMAINE Galo for Jordan Martinez MD cc: MD MERLINE Brody
[2019-12-29] MEDS: MEVACOR PO SCH (17:08)
--- NOTE | 2019-12-29 20:27 | INFECTIOUS DISEASE PROGRESS NO ---
DATE: 12/29/2019 The patient's blood cultures show no growth at 24 hours. The patient's IgG level is 863, and the IgA level is 345, both of which are in the normal range. cc: Jordan Martinez MD
[2019-12-30] MEDS: PROTONIX PO SCH (06:01)
[2019-12-30] MEDS: NS 1,000 ML IV SCH (06:01)
[2019-12-30 07:54] VITALS: BP 157/87
[2019-12-30] MEDS: SYMBICORT 80/4.5 MICROGM INHALER INH SCH (07:58)
[2019-12-30] MEDS: TYLENOL PO PRN (08:54)
[2019-12-30] MEDS: LEXAPRO PO SCH (08:56)
[2019-12-30] MEDS: NICODERM PATCH TD SCH (08:56)
[2019-12-30] MEDS: NEURONTIN PO SCH (08:56)
[2019-12-30] MEDS: M.V.I.-12 10 ML, FOLIC ACID 1 MG, MAGNESIUM SULFATE 1 GM, THIAMINE 100 MG in NS 1,000 ML IV SCH (08:56)
[2019-12-30] MEDS: PLAVIX PO SCH (08:56)
--- NOTE | 2019-12-30 21:22 | DISCHARGE SUMMARY ---
ADMISSION DATE: 12/25/2019 DISCHARGE DATE: 12/30/2019 DISCHARGE DIAGNOSES: 1. Bacteremia due to Streptococcus pneumonia. 2. Right lower lobe pneumonia. 3. Hyponatremia, resolved. 4. Alcohol use and abuse. 5. Tobacco abuse. 6. Metabolic encephalopathy, resolved. 7. Hypotension, resolved. 8. Dyslipidemia. PROCEDURES PERFORMED: 1. Chest x-ray dated 12/25/2019. Impression: Indeterminate infiltrate in the right lung base. 2. Head CT scan dated 12/25/2019. Impression: No hemorrhage, negative brain CT scan without contrast. 3. Abdomen and pelvis CT scan dated 12/25/2019. Impression: Severe right lower lobe pneumonia. No PE. He does have pulmonary emphysema. No evidence of acute abdominal or pelvic pathology. 4. Chest x-ray dated 12/27/2019. Impression: Improved right lower lobe pneumonia. HOSPITAL COURSE: A 64-year-old male with past medical history of tobacco use and alcohol abuse, presented to the emergency department with altered mental status and was admitted on 12/25/2019. The patient was confused initially. Images showed pneumonia. We started treatment with antibiotics. He also, at the beginning of this hospitalization, the patient was hypotensive and he recovered after getting some IV fluids and also albumin. The patient was improving on a daily basis. We had a positive blood culture that showed a streptococcal pneumonia. We contacted the Infectious Disease Department to evaluate this patient and they have been adjusting his medications. He is feeling much better. PICC line has been placed and he will be discharged home and continue with antibiotics for a few more days and, after finishing the antibiotics, he will follow up with Dr. Martinez from Infectious Disease Department as an outpatient to pull out the PICC line and also to make sure that he does not have any more bacteremia. We repeated the blood culture and it has been negative for 48 hours. PHYSICAL EXAMINATION: Vital Signs: Temperature 97.6 degrees, pulse 65, respiratory rate 17, blood pressure 157/87. Oxygen saturation 95% on room air. HEENT: Head normocephalic, no trauma, PERRLA. Neck is supple. No JVD. No masses. Central trachea. Chest: Rhonchi at the right base. Prolonged expiratory phase. Decreased breath sounds globally. Abdomen: Soft, nontender, nondistended. No hepatosplenomegaly. Extremities: No edema, no clubbing, no cyanosis. Neurological: The patient is awake, alert. He is oriented x3. No focal deficits. LABORATORY: No laboratory work done today but previous laboratory work with a normal WBC of 8.1, hemoglobin 12.7. Sodium 139, potassium 4.4, chloride 109, bicarbonate 21, BUN 21, creatinine 0.7, and a calcium 8, glucose 83. This laboratory work is from 12/28/2019. DISCHARGE MEDICATIONS: 1. Ceftriaxone 2 g daily IV as directed per Dr. Martinez to complete to 2 weeks of treatment, being day #1, the first day of negative blood culture which is 2 days ago on 12/28/2019. 2. Albuterol sulfate 2 puff inhaler q.6 hours as needed. 3. Symbicort 80/4.5 mcg inhaler 2 puff inhaler twice a day. 4. Plavix 75 mg p.o. daily. 5. Citalopram 20 mg p.o. daily. 6. Gabapentin 300 mg p.o. b.i.d. 7. Lisinopril 20 mg p.o. b.i.d. 8. Lovastatin 20 mg p.o. with supper. 9. Pantoprazole 40 mg p.o. daily. cc: Stevie Morel MD
--- NOTE | 2020-01-01 18:14 | Extremity Venous Study ---
PROCEDURE NAME: Venous U/S Bilateral Legs - 12/28/2019 REFERRING PHYSICIAN: Stevie Morel MD READING PHYSICIAN: Irineo Alonzo MD DELIVERY CONSULTANT: Latoya. INDICATION: Elevated D-dimer and leg pain. FINDINGS: The deep and superficial veins of both lower extremities were imaged throughout their course. They are compressible and patent without thrombus. INTERPRETATION: No deep venous thrombosis or superficial venous thrombosis of either lower extremity. cc: MD Stevie Esposito MD
== END 2019-12-30 11:09 | disposition home health service (06) | DRG 193 ==
LOC: ED 11:40 → 3N 21:16 → SUATTDRO 21:16
PROVIDERS: ATTEND Internal Medicine